=== PATIENT | female | born 2000 | race Caucasian/White ===

== ENCOUNTER 2021-04-17 17:41 | Emergency (ER) | payer OTHER, SELFPAY ==
[2021-04-17] MEDS ORDERED: HYDROcodone/Acetaminophen 10/325 mg Tablet ONE (19:13)
[2021-04-17] MEDS ORDERED: Ibuprofen 800 MG TAB ONE (19:13)
== END 2021-04-17 19:35 | disposition home or self-care (01) ==
LOC: ERS 17:41
DX: S80.01XA Contusion of right knee, initial encounter (principal); W23.0XXA Caught, crushed, jammed, or pinched between moving objects, initial encounter; Y92.89 Other specified places as the place of occurrence of the external cause; Y99.0 Civilian activity done for income or pay